=== PATIENT | male | born 1990 | race Caucasian/White ===

== ENCOUNTER 2018-12-07 17:13 | Inpatient (IN) ==
--- NOTE | 2018-12-07 18:14 | Emergency Department Note ---
Disposition Clinical Impression: Suicidal ideation, Depression Disposition: Still a Patient Condition: Fair Forms: ED Satisfaction Letter Time of Disposition: 20:17 General Adult HPI - General Chief complaint: ED Psychiatric Symptoms Stated complaint: SI Time Seen by Provider: 12/07/18 17:46 Source: patient, family Limitations: no limitations Nursing Notes Reviewed: Yes Vital Signs Reviewed: Yes - History of Present Illness HPI Narrative: Patient presents emergency Department with chief complaint of suicidal ideation and depression. The patient states that he is lonely, he states that he has multiple stressors and things that make him upset, he states that he still wets the bed and this makes him upset he states that he does not really have many friends. He states that he just feels always alone and tired. He has been cutting his arms, and repeatedly banging his head on the wall according to the family, and according to the patient. The patient denies fevers chills numbness weakness. He states he does feel hopeless he has a plan to try and kill himself sometimes. He states that he took a lenz and tried to hang himself once. He did not do this recently. He states the right this second he does not have suicidal ideation but he keeps coming and going. He states he does have a headache from banging his head on the wall. Patient reports that he has had no chest pain or shortness of breath no cough or sputum production no abdominal pain no nausea no vomiting or diarrhea. Patient denies focal numbness or weakness. Patient states that he does not take any medications. He states he does not like to take medications. Patient denies alcohol or street drugs he will occasionally smoke cigarettes. He states is not much that brings him abbey in life. Pain Scale: 8 - Related Data Home Medications Medication Instructions Recorded Confirmed No Known Home Drugs 10/04/18 10/04/18 Allergies Allergy/AdvReac Type Severity Reaction Status Date / Time No Known Allergies Allergy Verified 03/18/18 15:10 All systems ED: reviewed and negative except as stated. Review of Systems: As Per HPI Past Medical History - Past Medical History Medical history: Reports: renal disease Surgical history: Reports: no surgical history Psychiatric history: Reports: anxiety, bipolar, depression - Social History Smoking Status: Former smoker Smokeless Tobacco Status: No Alcohol use: Reports: none Drug use: Reports: marijuana Physical Exam - General Limitations: no limitations General appearance: alert, in no apparent distress - Head Head exam: atraumatic, normocephalic, normal inspection - Eye Eye exam: Present: normal appearance, PERRL, EOMI - Expanded Eye Exam Pupils: Left: reactive - ENT ENT exam: normal exam, normal oropharynx, mucous membranes moist - Expanded ENT Exam External ear exam: Present: normal external inspection Mouth exam: Present: normal external inspection Teeth exam: Present: normal inspection Throat exam: Present: normal inspection - Neck Neck exam: Present: normal inspection, full ROM, trachea midline - Chest Chest inspection: Present: normal inspection, symmetric chest wall rise - Respiratory Respiratory exam: Present: normal lung sounds bilaterally - Cardiovascular Cardiovascular exam: Present: regular rate, normal rhythm, normal heart sounds - Abdominal Exam Abdominal exam: Present: soft, Non-Tender. Absent: tenderness, distention, guarding, rebound, rigidity - Extremities Exam Extremities exam: Present: normal inspection, full ROM. Absent: tenderness, pe hill edema - Expanded Upper Extremity Exam Shoulder exam: Present: normal inspection, full ROM Arm exam: Present: normal inspection, full ROM Elbow exam: Present: normal inspection, full ROM Forearm/Wrist exam: Present: normal inspection, full ROM Hand exam: Present: normal inspection, full ROM Vascular exam: Normal: capillary refill, radial pulse - Expanded Lower Extremity Exam Hip/Pelvis exam: Present: normal inspection, full ROM Upper leg exam: Present: normal inspection, full ROM Knee exam: Present: normal inspection, full ROM Lower leg exam: Present: normal inspection, full ROM Ankle exam: Present: normal inspection, full ROM Foot/toe exam: Present: normal inspection, full ROM Neurovascular/Tendon exam: Absent: motor deficit, sensory deficit, tendon deficit - Back Exam Back exam: Present: normal inspection, full ROM. Absent: tenderness - Neurological Exam Neurological exam: Present: alert, oriented X3 - Expanded Neurological Exam Patient oriented to: Present: person, place, time Coma Scale Eye Opening: Spontaneous Coma Scale Motor Response: Obeys Commands Coma Scale Verbal Response: Oriented Coma Scale Total: 15 - Psychiatric Psychiatric exam: Present: depressed, flat affect, suicidal ideation (Intermittent). Absent: normal affect, normal mood - Skin Skin exam: Present: warm, dry, intact, normal color, other (superficial linear abrasions/cuts both arms) Course Vital Signs Temperature 98.0 F 12/07/18 17:35 Pulse Rate 55 12/07/18 17:35 Respiratory Rate 16 12/07/18 17:35 Blood Pressure 154/77 12/07/18 17:35 O2 Sat by Pulse Oximetry 99 12/07/18 17:35 Temperature 98.0 F 12/07/18 17:35 Pulse Rate 55 12/07/18 17:35 Respiratory Rate 16 12/07/18 17:35 Blood Pressure 154/77 12/07/18 17:35 O2 Sat by Pulse Oximetry 99 12/07/18 17:35 Oxygen Delivery Oxygen Delivery Room Air Medical Decision Making - MDM Narrative Medical decision making narrative: Medical screening labs were ordered, head CT was ordered secondary to repeated head banging Basic laboratory studies were all within acceptable limits urine drug screen was positive for marijuana salicylate Tylenol ethanol levels are all undetectable. Head CT is interpreted by radiology showed no acute intracranial pathology. Patient was cleared clinically for psychiatric admission. - Medical Records Medical records reviewed: Yes I reviewed the patient's medical records. - Lab Data Lab results reviewed: Yes I reviewed the patient's lab results. Result diagrams: 12/07/18 18:17 12/07/18 18:17 Lab Results 12/07/18 12/07/18 12/07/18 Range/Units 18:00 18:00 18:17 WBC 6.2 (4.3-11.1) K/mcL RBC 4.09 L (4.19-5.50) M/mcL Hgb 13.2 (12.9-16.9) g/dL Hct 38.6 (37.5-50.1) % MCV 94.4 (83.0-100.0) fL MCH 32.3 (28.0-33.3) pg MCHC 34.2 (31.6-35.5) g/dL RDW 12.6 (11.5-14.5) % Plt Count 181 (140-400) K/mcL MPV 9.9 (9.4-12.4) fL Immature Gran % 0.3 (0-4) % Seg Neutrophils % 62.8 % Lymphocytes % 27.9 % Monocytes % 7.1 % Eosinophils % 1.1 % Basophils % 0.8 % Neutrophils # 3.9 (1.6-8.9) K/mcL Lymphocytes # 1.7 (0.6-4.6) K/mcL Monocytes # 0.4 (0.0-1.3) K/mcL Eosinophils # 0.1 (0.0-0.6) K/mcL Basophils # 0.1 (0.0-0.2) K/mcL Sodium (136-145) mEq/L Potassium (3.5-5.1) mEq/L Chloride (98-107) mEq/L Carbon Dioxide (23-29) mEq/L BUN (6-20) mg/dL Creatinine (0.70-1.30) mg/dL Est GFR ( Amer) (> 60) Est GFR (Non-Af Amer) (> 60) BUN/Creatinine Ratio (6-26) Glucose (70-105) mg/dL Calculated Osmolality (280-300) Calcium (8.6-10.3) mg/dL Urine Color Yellow (Yellow) Urine Clarity Clear (Clear) Urine pH 8.0 (5.0-8.0) pH Units Ur Specific [place] 1.014 (1.010-1.025) Urine Protein Negative (Neg-Trace) mg/dL Urine Glucose (UA) Normal (Normal) mg/dL Urine Ketones Negative (Negative) mg/dL Urine Blood Negative (Negative) Urine Nitrite Negative (Negative) Urine Bilirubin Negative (Negative) Urine Urobilinogen Normal (Normal) mg/dL Ur Leukocyte Esterase Negative (Negative) Salicylates (15.0-30.0) mg/dL Urine Opiates Screen Negative (Purpdq=244) ng/mL Acetaminophen (10-20) mcg/mL Ur Barbiturates Screen Negative (Bsefsh=259) ng/mL Ur Phencyclidine Scrn Negative (Cutoff=25) ng/mL Ur Amphetamines Screen Negative (Pvmxys=7462) ng/mL U Benzodiazepines Scrn Negative (Zmqjwd=895) ng/mL Urine Cocaine Screen Negative (Cutoff= 300) ng/mL U Marijuana (THC) Screen Positive H (Cutoff = 50) ng/mL Ur Drug Screen Interp See Below Ethyl Alcohol (Less than 10) mg/dL 12/07/18 Range/Units 18:17 WBC (4.3-11.1) K/mcL RBC (4.19-5.50) M/mcL Hgb (12.9-16.9) g/dL Hct (37.5-50.1) % MCV (83.0-100.0) fL MCH (28.0-33.3) pg MCHC (31.6-35.5) g/dL RDW (11.5-14.5) % Plt Count (140-400) K/mcL MPV (9.4-12.4) fL Immature Gran % (0-4) % Seg Neutrophils % % Lymphocytes % % Monocytes % % Eosinophils % % Basophils % % Neutrophils # (1.6-8.9) K/mcL Lymphocytes # (0.6-4.6) K/mcL Monocytes # (0.0-1.3) K/mcL Eosinophils # (0.0-0.6) K/mcL Basophils # (0.0-0.2) K/mcL Sodium 137 (136-145) mEq/L Potassium 3.9 (3.5-5.1) mEq/L Chloride 104 (98-107) mEq/L Carbon Dioxide 29 (23-29) mEq/L BUN 11 (6-20) mg/dL Creatinine 0.64 L (0.70-1.30) mg/dL Est GFR ( Amer) > 60 (> 60) Est GFR (Non-Af Amer) > 60 (> 60) BUN/Creatinine Ratio 17 (6-26) Glucose 85 (70-105) mg/dL Calculated Osmolality 283 (280-300) Calcium 9.5 (8.6-10.3) mg/dL Urine Color (Yellow) Urine Clarity (Clear) Urine pH (5.0-8.0) pH Units Ur Specific [place] (1.010-1.025) Urine Protein (Neg-Trace) mg/dL Urine Glucose (UA) (Normal) mg/dL Urine Ketones (Negative) mg/dL Urine Blood (Negative) Urine Nitrite (Negative) Urine Bilirubin (Negative) Urine Urobilinogen (Normal) mg/dL Ur Leukocyte Esterase (Negative) Salicylates < 2.5 L (15.0-30.0) mg/dL Urine Opiates Screen (Nattpe=803) ng/mL Acetaminophen < 10 L (10-20) mcg/mL Ur Barbiturates Screen (Ufnlqp=348) ng/mL Ur Phencyclidine Scrn (Cutoff=25) ng/mL Ur Amphetamines Screen (Kkoouq=9828) ng/mL U Benzodiazepines Scrn (Oqutqv=398) ng/mL Urine Cocaine Screen (Cutoff= 300) ng/mL U Marijuana (THC) Screen (Cutoff = 50) ng/mL Ur Drug Screen Interp Ethyl Alcohol < 10 (Less than 10) mg/dL - Radiology Data Radiology results reviewed: Yes I reviewed the patient's radiology results.
[2018-12-07 18:25] LABS: Bilirubin,Urine Negative (Negative); Blood,Urine Negative (Negative); Clarity,Urine Clear (Clear); Color,Urine Yellow (Yellow); Glucose,Urine (UA) Normal (Normal); Ketones,Urine Negative (Negative); Leukocyte Esterase,Urine Negative (Negative); Nitrite,Urine Negative (Negative); Protein,Urine Negative (Neg-Trace); Specific Gravity,Urine 1.014 (1.010-1.025); Urobilinogen,Urine Normal (Normal)
[2018-12-07 18:36] LABS: Amphetamine Screen,Urine Negative ng/mL (Cutoff=1000); Barbiturate Screen,Urine Negative ng/mL (Cutoff=200); Benzodiazepines Screen,Urine Negative ng/mL (Cutoff=200); Cannabinoid Screen,Urine Positive ng/mL (Cutoff = 50); Cocaine Screen,Urine Negative ng/mL (Cutoff= 300); Opiate Screen,Urine Negative ng/mL (Cutoff=300); Phencyclidine Screen,Urine Negative ng/mL (Cutoff=25)
[2018-12-07 18:53] LABS: Basophils # 0.1 K/mcL (0.0-0.2); Basophils % 0.8 %; Eosinophils # 0.1 K/mcL (0.0-0.6); Eosinophils % 1.1 %; Hematocrit 38.6 % (37.5-50.1); Hemoglobin 13.2 g/dL (12.9-16.9); Immature Granulocytes % 0.3 % (0-4); Lymphocytes # 1.7 K/mcL (0.6-4.6); Lymphocytes % 27.9 %; Mean Corpuscular HGB Conc 34.2 g/dL (31.6-35.5); Mean Corpuscular Hemoglobin 32.3 pg (28.0-33.3); Mean Corpuscular Volume 94.4 fL (83.0-100.0); Mean Platelet Volume 9.9 fL (9.4-12.4); Monocytes # 0.4 K/mcL (0.0-1.3); Monocytes % 7.1 %; Neutrophils # 3.9 K/mcL (1.6-8.9); Platelet Count 181 K/mcL (140-400); Red Blood Count 4.09 M/mcL (4.19-5.50); Red Cell Distribution Width 12.6 % (11.5-14.5); Segmented Neutrophils % 62.8 %; White Blood Count 6.2 K/mcL (4.3-11.1)
[2018-12-07 19:07] LABS: Acetaminophen < 10 mcg/mL (10-20); BUN/Creatinine Ratio 17 (6-26); Blood Urea Nitrogen 11 mg/dL (6-20); Calcium 9.5 mg/dL (8.6-10.3); Carbon Dioxide 29 mEq/L (23-29); Chloride 104 mEq/L (98-107); Ethanol < 10 mg/dL (Less than 10); Glucose 85 mg/dL (70-105); Osmolality,Calculated 283 (280-300); Potassium 3.9 mEq/L (3.5-5.1); Salicylate < 2.5 mg/dL (15.0-30.0); Sodium 137 mEq/L (136-145); eGFR For African Americans > 60 (> 60); eGFR For Non-African Americans > 60 (> 60)
[2018-12-07] MEDS ORDERED: Haloperidol Lactate 5 MG/ML VIAL IM PRN (23:19)
[2018-12-07] MEDS ORDERED: Mag Hydrox/Al Hydrox/Simeth 30 ML UDC PO PRN (23:19)
[2018-12-07] MEDS ORDERED: MOM Conc 10 ML UD.LIQ PO PRN (23:19)
[2018-12-07] MEDS ORDERED: *HR* LORazepam 2 MG/ML VIAL IM PRN (23:19)
[2018-12-07] MEDS ORDERED: *HR* LORazepam 1 MG TABLET PO PRN (23:19)
[2018-12-08] MEDS: hydrOXYzine pamoate 25 MG CAPSULE PO PRN ×2 (00:37→21:16)
[2018-12-08] MEDS: Ibuprofen 400 MG TABLET PO PRN (00:37)
--- NOTE | 2018-12-08 13:51 | Psychiatry History & Physical ---
Date of Encounter: 12/08/18 Time of Encounter: 13:30 History of Present Illness Patient Stated Chief Complaint: "I'm fine" Medicare Admission Attestation: For traditional Medicare patients the provided hospital inpatient services are reasonable and necessary and in the case of services not specified as inpatient-only under 42 CFR 419.22 (n), that they are appropriately provided as inpatient services in accordance 42 CFR 412.3. For Critical Access Hospital the patient may reasonably be expected to be discharged or transferred to a hospital within 96 hours after admission to the Critical Access Hospital. Admitted From: Emergency Dept Plans for Post Hospital Care: Home History of Present Illness: Mr. Sanchez is a 28 year old male who was admitted to after evaluation emergency room and medical clearance. Patient has been cutting on himself and had passively threaten suicide to members of his family, but denied it in the emergency room. The family fears for his safety and he does acknowledge wanting to cut on himself more so lately than in the past. Patient's family notices he has become more depressed and distant and has anger outbursts at times. I went to talk to the patient today, but he would not get out of bed to come talk to me to do intake interview. He said he was fine and covered his head back up and would not talk further. I reviewed the notes from the emergency room assessment. Patient does appear to have depression or mood disorder, but it is questionable as to why. There is some documentation of the some drug use in the past and that things might have gotten worse with his cognition afterwards. He is low functioning and was in special classes in school. He lives independently on his own with a great deal of supervision from his grandmother. I will continue to try to get the patient to engage with me to get more information and I will contact family to discuss the case with them. Patient will be continued on his current medications he was taking outpatient until further evaluation is complete. Past Med Surg Social Fam HX - Past Medical History Medical history: renal disease - Past Psychiatric History Psychiatric history: Reports: depression (???) Past psychiatric history details: Patient takes an SSRI but not sure about compliance or who prescribes it. Family psychiatric history: Unknown Family History of Suicide: Unknown - Past Surgical History Surgical History: no surgical history - Social History Smoking Status: Former smoker Smokeless Tobacco Status: No Alcohol use: none Drug use: marijuana Occupational status: unemployed Current living situation: Home - Independent (, his grandmaother takes care of most of his maintenance.) Activity Level: Independent ambulation Recent Out of Country Travel Within the Last 8 Weeks: No Exposure or Possible Exposure to Illness During Travel: No Medications & Allergies Citalopram [CeleXA] 20 mg PO DAILY 12/08/18 [History] Oxybutynin Chloride [Ditropan Xl] 10 mg PO DAILY 12/08/18 [History] Allergy/AdvReac Type Severity Reaction Status Date / Time No Known Allergies Allergy Verified 12/08/18 09:22 Review of Systems Psychiatric: Reports: depression, anxiety, suicidal ideation (questionable/cutting on self) Exam - HEENT Head exam IM: Present: normocephalic Eye exam IM: Present: EOMI - Neurological Neurological exam: Present: CN II-XII intact (per ED clearance) - Constitutional Vitals: Temp Pulse Resp BP Pulse Ox 97.7 F 59 18 120/82 100 12/08/18 09:00 12/08/18 09:00 12/08/18 09:00 12/08/18 09:00 12/08/18 09:00 General appearance: unkempt (mildly, covered up with a blanket and does not want to get out of bed), thin - Psychiatric Behavior: uncooperative (He will not get out of bed to talk to me for intake and assessment) Eye Contact: Minimal Contact Affect description: constricted Speech Volume: Soft/Quiet Speech pattern: monotone Language & Vocabulary: limited Thought Content: Yes Suicidal ideation (reported ideation by family) Attention Span Ability: Unable to Focus, Unable to Sustain Attention Results - Drug Levels and Toxicology Drug Levels and Toxicology: Drug Levels and Toxicity 12/07/18 12/07/18 18:00 18:17 Urine Opiates Screen Negative Acetaminophen < 10 L Ur Barbiturates Screen Negative Ur Phencyclidine Scrn Negative Ur Amphetamines Screen Negative U Benzodiazepines Scrn Negative Urine Cocaine Screen Negative U Marijuana (THC) Screen Positive H Ethyl Alcohol < 10 - Labs Labs: Laboratory Last Values WBC 6.2 K/mcL (4.3-11.1) 12/07/18 18:17 RBC 4.09 M/mcL (4.19-5.50) L 12/07/18 18:17 Hgb 13.2 g/dL (12.9-16.9) 12/07/18 18:17 Hct 38.6 % (37.5-50.1) 12/07/18 18:17 MCV 94.4 fL (83.0-100.0) 12/07/18 18:17 MCH 32.3 pg (28.0-33.3) 12/07/18 18:17 MCHC 34.2 g/dL (31.6-35.5) 12/07/18 18:17 RDW 12.6 % (11.5-14.5) 12/07/18 18:17 Plt Count 181 K/mcL (140-400) 12/07/18 18:17 MPV 9.9 fL (9.4-12.4) 12/07/18 18:17 Immature Gran % 0.3 % (0-4) 12/07/18 18:17 Seg Neutrophils % 62.8 % 12/07/18 18:17 27.9 % 12/07/18 18:17 7.1 % 12/07/18 18:17 1.1 % 12/07/18 18:17 0.8 % 12/07/18 18:17 3.9 K/mcL (1.6-8.9) 12/07/18 18:17 1.7 K/mcL (0.6-4.6) 12/07/18 18:17 0.4 K/mcL (0.0-1.3) 12/07/18 18:17 0.1 K/mcL (0.0-0.6) 12/07/18 18:17 0.1 K/mcL (0.0-0.2) 12/07/18 18:17 Sodium 137 mEq/L (136-145) 12/07/18 18:17 Potassium 3.9 mEq/L (3.5-5.1) 12/07/18 18:17 Chloride 104 mEq/L (98-107) 12/07/18 18:17 Carbon Dioxide 29 mEq/L (23-29) 12/07/18 18:17 BUN 11 mg/dL (6-20) 12/07/18 18:17 0.64 mg/dL (0.70-1.30) L 12/07/18 18:17 Est GFR ( Amer) > 60 (> 60) 12/07/18 18:17 Est GFR (Non-Af Amer) > 60 (> 60) 12/07/18 18:17 17 (6-26) 12/07/18 18:17 Glucose 85 mg/dL (70-105) 12/07/18 18:17 283 (280-300) 12/07/18 18:17 Calcium 9.5 mg/dL (8.6-10.3) 12/07/18 18:17 Yellow (Yellow) 12/07/18 18:00 Clear (Clear) 12/07/18 18:00 8.0 pH Units (5.0-8.0) 12/07/18 18:00 Ur Specific [place] 1.014 (1.010-1.025) 12/07/18 18:00 Negative mg/dL (Neg-Trace) 12/07/18 18:00 Normal mg/dL (Normal) 12/07/18 18:00 Negative mg/dL (Negative) 12/07/18 18:00 Negative (Negative) 12/07/18 18:00 Negative (Negative) 12/07/18 18:00 Negative (Negative) 12/07/18 18:00 Normal mg/dL (Normal) 12/07/18 18:00 Ur Leukocyte Esterase Negative (Negative) 12/07/18 18:00 Salicylates < 2.5 mg/dL (15.0-30.0) L 12/07/18 18:17 Negative ng/mL (Ewsmts=259) 12/07/18 18:00 Acetaminophen < 10 mcg/mL (10-20) L 12/07/18 18:17 Ur Barbiturates Screen Negative ng/mL (Dlvwxm=230) 12/07/18 18:00 Ur Phencyclidine Scrn Negative ng/mL (Cutoff=25) 12/07/18 18:00 Ur Amphetamines Screen Negative ng/mL (Iwpwpi=7273) 12/07/18 18:00 U Benzodiazepines Scrn Negative ng/mL (Dvunck=443) 12/07/18 18:00 Negative ng/mL (Cutoff= 300) 12/07/18 18:00 U Marijuana (THC) Screen Positive ng/mL (Cutoff = 50) H 12/07/18 18:00 Ur Drug Screen Interp See Below 12/07/18 18:00 Ethyl Alcohol < 10 mg/dL (Less than 10) 12/07/18 18:17 - Impressions Impressions Head CT 12/07/18 18:08 IMPRESSION: No acute intracranial abnormality. D/ / Tj Hoang / Tj Hoang Interpreting Provider: Tj Hoang Assessment and Plan (1) Depression Current visit: Yes Status: Acute Plan: Admit inpatient for safety and stabilization, Close observation, Suicide Precautions per unit protocol, Encourage participation in unit milieu Risks, benefits, side effects, alternatives discussed w/pt: Yes (Continue his Celexa for now) Patient agreeable to treatment: No (he will not cooperate with intake interview) Plans for Post Hospital Care: Home Estimated Length of Stay (Days): 5
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
[2018-12-09] MEDS: hydrOXYzine pamoate 25 MG CAPSULE PO PRN (20:54)
--- NOTE | 2018-12-10 10:30 | Psychiatry Progress Note ---
Date of Encounter: 12/10/18 Time of Encounter: 10:10 Subjective Interval history: I spoke with the patient this morning about the anxiety/agitation he had last evening after a confrontation he had with his grandmother during visiting hours. She told him that he was not going to be able to live with her when he was discharged, but she would continue to help him out in his house. Patient was confused and thought that his discharge was dependent on him living with his grandmother; therefore that he was never going to be discharged. I explained that he could still be discharged and not live with her. That we just needed to make sure he was stable and get him back into counseling and therapy. He stated that he wanted somebody live with him because he was lonely. He states that his dad might come live with him again or his cousin Donnell. He denies any adverse side effects of increase in the Celexa. He states he had a little bit of trouble sleeping last night because he was angry and frustrated, but hoped that today would be a better day. He is hopeful that someone would come visit him today. He denied any suicidal thoughts or thoughts of cutting. He told me he felt much calmer this morning after getting a little bit of sleep last night. No A/V hallucinations Review of Systems Psychiatric: Reports: depression, anxiety, suicidal ideation (questionable/cutting on self) Results - Vital Signs Vital Signs: Temp Pulse Resp BP Pulse Ox 98.3 F 74 18 147/83 99 12/09/18 21:00 12/09/18 21:00 12/09/18 21:00 12/09/18 21:00 12/09/18 21:00 - Impressions ITS Impressions Head CT 12/07/18 18:08 IMPRESSION: No acute intracranial abnormality. 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 Althea Kaplan M.D. for medication management. Please contact the office at least 24 hours in advance if you are unable to keep your appointment(s). ) Chino José DO [Resident] - 01/08/19 2:30 pm (You have an appointment scheduled with your primary care provider Dr. Chino José D.O. on Tuesday, January 08, 2019 at 2:30 PM Please contact the office at the number above at least 24 hours in advance if you are unable to keep this appointment. ) Psychiatry Exam - Constitutional Vitals: Temp Pulse Resp BP Pulse Ox 98.3 F 74 18 147/83 99 12/09/18 21:00 12/09/18 21:00 12/09/18 21:00 12/09/18 21:00 12/09/18 21:00 General appearance: thin - Musculoskeletal Gait: normal Station: stooped Strength & Tone: normal for patient - Psychiatric Patient Orientation: Yes Person, Yes Time, Yes Place Level of alertness: Alert (appears tired) Behavior: anxious (mildy) Psychomotor activity: Slowed Eye Contact: Maintains Eye Contact Mood Description: Depressed Affect description: congruent with mood Speech Volume: Normal Speech pattern: normal rate, normal rhythm, normal tone, fluent Language & Vocabulary: limited Thought Process: Linear, Goal Oriented Thought Content: Yes Intact Attention Span Ability: Capable of Focused Attention Patient Reliability: Questionable Historian Fund of knowledge: Yes below average Intelligence Estimate: Below Average Judgment: Fair Insight: Partial
[2018-12-10] MEDS: hydrOXYzine pamoate 25 MG CAPSULE PO PRN ×2 (16:37→20:14)
[2018-12-10] MEDS: Ibuprofen 400 MG TABLET PO PRN (20:16)
[2018-12-11] MEDS: Ibuprofen 400 MG TABLET PO PRN (08:59)
--- NOTE | 2018-12-11 09:14 | Discharge Summary ---
Date of Encounter: 12/11/18 Time of Encounter: 08:25 Diagnosis - Discharge Diagnosis (1) Depression Status: Acute Qualifiers: Depression Type: major depressive disorder Major depression recurrence: r ecurrent Active/Remission status: currently active Major depression episode severity: severe Psychotic features: without psychotic features Qualified Code(s): F33.2 - Major depressive disorder, recurrent severe without psychotic features Medications - Discharge Medications Prescriptions: Citalopram [CeleXA] 30 mg PO DAILY #23 tablet Oxybutynin Chloride [Ditropan Xl] 10 mg PO DAILY #15 tab.er.24 hydrOXYzine pamoate [HydrOXYzine Pamoate] 25 mg PO TID PRN #30 capsule PRN Reason: Anxiety Quetiapine Fumarate [Seroquel] 50 mg PO HS PRN #15 tablet PRN Reason: Insomnia Citalopram [CeleXA] 30 mg PO DAILY #23 tablet 12/11/18 [Rx] Oxybutynin Chloride [Ditropan Xl] 10 mg PO DAILY #15 tab.er.24 12/11/18 [Rx] Quetiapine Fumarate [Seroquel] 50 mg PO HS PRN #15 tablet 12/11/18 [Rx] hydrOXYzine pamoate [HydrOXYzine Pamoate] 25 mg PO TID PRN #30 capsule 12/11/18 [Rx] Allergy/AdvReac Type Severity Reaction Status Date / Time No Known Allergies Allergy Verified 12/08/18 09:22 Results Procedures and tests throughout hospitalization: Completed Lab Orders Category Date Time Status Acetaminophen Stat Lab 12/07/18 18:17 Completed Basic Metabolic Panel Stat Lab 12/07/18 18:17 Completed Complete Blood Count [HEME] Stat Lab 12/07/18 18:17 Completed Drug Screen, Urine [UCHEM] Stat Lab 12/07/18 18:00 Completed Ethanol Stat Lab 12/07/18 18:17 Completed Salicylate Stat Lab 12/07/18 18:17 Completed Urinalysis reflex Microscopic [URIN] Stat Lab 12/07/18 18:00 Completed Completed Imaging Orders Category Date Time Status CT head/brain wo con [CT] Stat Cat Scan 12/07/18 18:08 Completed Lab Results 12/07/18 12/07/18 12/07/18 Range/Units 18:00 18:00 18:17 WBC 6.2 (4.3-11.1) K/mcL RBC 4.09 L (4.19-5.50) M/mcL Hgb 13.2 (12.9-16.9) g/dL Hct 38.6 (37.5-50.1) % MCV 94.4 (83.0-100.0) fL MCH 32.3 (28.0-33.3) pg MCHC 34.2 (31.6-35.5) g/dL RDW 12.6 (11.5-14.5) % Plt Count 181 (140-400) K/mcL MPV 9.9 (9.4-12.4) fL Immature Gran % 0.3 (0-4) % Seg Neutrophils % 62.8 % Lymphocytes % 27.9 % Monocytes % 7.1 % Eosinophils % 1.1 % Basophils % 0.8 % Neutrophils # 3.9 (1.6-8.9) K/mcL Lymphocytes # 1.7 (0.6-4.6) K/mcL Monocytes # 0.4 (0.0-1.3) K/mcL Eosinophils # 0.1 (0.0-0.6) K/mcL Basophils # 0.1 (0.0-0.2) K/mcL Sodium (136-145) mEq/L Potassium (3.5-5.1) mEq/L Chloride (98-107) mEq/L Carbon Dioxide (23-29) mEq/L BUN (6-20) mg/dL Creatinine (0.70-1.30) mg/dL Est GFR ( Amer) (> 60) Est GFR (Non-Af Amer) (> 60) BUN/Creatinine Ratio (6-26) Glucose (70-105) mg/dL Calculated Osmolality (280-300) Calcium (8.6-10.3) mg/dL Urine Color Yellow (Yellow) Urine Clarity Clear (Clear) Urine pH 8.0 (5.0-8.0) pH Units Ur Specific [place] 1.014 (1.010-1.025) Urine Protein Negative (Neg-Trace) mg/dL Urine Glucose (UA) Normal (Normal) mg/dL Urine Ketones Negative (Negative) mg/dL Urine Blood Negative (Negative) Urine Nitrite Negative (Negative) Urine Bilirubin Negative (Negative) Urine Urobilinogen Normal (Normal) mg/dL Ur Leukocyte Esterase Negative (Negative) Salicylates (15.0-30.0) mg/dL Urine Opiates Screen Negative (Hwrntj=348) ng/mL Acetaminophen (10-20) mcg/mL Ur Barbiturates Screen Negative (Gvjtcd=899) ng/mL Ur Phencyclidine Scrn Negative (Cutoff=25) ng/mL Ur Amphetamines Screen Negative (Shfrfb=1640) ng/mL U Benzodiazepines Scrn Negative (Gdiqiz=697) ng/mL Urine Cocaine Screen Negative (Cutoff= 300) ng/mL U Marijuana (THC) Screen Positive H (Cutoff = 50) ng/mL Ur Drug Screen Interp See Below Ethyl Alcohol (Less than 10) mg/dL 12/07/18 Range/Units 18:17 WBC (4.3-11.1) K/mcL RBC (4.19-5.50) M/mcL Hgb (12.9-16.9) g/dL Hct (37.5-50.1) % MCV (83.0-100.0) fL MCH (28.0-33.3) pg MCHC (31.6-35.5) g/dL RDW (11.5-14.5) % Plt Count (140-400) K/mcL MPV (9.4-12.4) fL Immature Gran % (0-4) % Seg Neutrophils % % Lymphocytes % % Monocytes % % Eosinophils % % Basophils % % Neutrophils # (1.6-8.9) K/mcL Lymphocytes # (0.6-4.6) K/mcL Monocytes # (0.0-1.3) K/mcL Eosinophils # (0.0-0.6) K/mcL Basophils # (0.0-0.2) K/mcL Sodium 137 (136-145) mEq/L Potassium 3.9 (3.5-5.1) mEq/L Chloride 104 (98-107) mEq/L Carbon Dioxide 29 (23-29) mEq/L BUN 11 (6-20) mg/dL Creatinine 0.64 L (0.70-1.30) mg/dL Est GFR ( Amer) > 60 (> 60) Est GFR (Non-Af Amer) > 60 (> 60) BUN/Creatinine Ratio 17 (6-26) Glucose 85 (70-105) mg/dL Calculated Osmolality 283 (280-300) Calcium 9.5 (8.6-10.3) mg/dL Urine Color (Yellow) Urine Clarity (Clear) Urine pH (5.0-8.0) pH Units Ur Specific [place] (1.010-1.025) Urine Protein (Neg-Trace) mg/dL Urine Glucose (UA) (Normal) mg/dL Urine Ketones (Negative) mg/dL Urine Blood (Negative) Urine Nitrite (Negative) Urine Bilirubin (Negative) Urine Urobilinogen (Normal) mg/dL Ur Leukocyte Esterase (Negative) Salicylates < 2.5 L (15.0-30.0) mg/dL Urine Opiates Screen (Enalad=884) ng/mL Acetaminophen < 10 L (10-20) mcg/mL Ur Barbiturates Screen (Ulandt=775) ng/mL Ur Phencyclidine Scrn (Cutoff=25) ng/mL Ur Amphetamines Screen (Fjgcld=7019) ng/mL U Benzodiazepines Scrn (Ftkkda=817) ng/mL Urine Cocaine Screen (Cutoff= 300) ng/mL U Marijuana (THC) Screen (Cutoff = 50) ng/mL Ur Drug Screen Interp Ethyl Alcohol < 10 (Less than 10) mg/dL Provider Date of admission: 12/07/18 23:20 Primary care physician: PCP NONE Discharging clinician: Day [facility]ens Psychiatry Exam - Constitutional Vitals: Temp Pulse Resp BP Pulse Ox 97.9 F 75 18 145/89 100 12/10/18 19:49 12/10/18 19:49 12/10/18 19:49 12/10/18 19:49 12/10/18 19:49 General appearance: age & developmentally appropriate, malnourished (Smells of urine of urine) - Musculoskeletal Gait: normal Station: relaxed Strength & Tone: normal for patient - Psychiatric Patient Orientation: Yes Person, Yes Time, Yes Place, Yes Circumstance Level of alertness: Alert Behavior: calm, cooperative Psychomotor activity: Normal Eye Contact: Maintains Eye Contact Mood Description: Euthymic/stable Patient description of mood: Okay Affect description: congruent with mood, full range Speech Volume: Normal Speech pattern: normal rate, normal rhythm, normal tone, fluent, spontaneous Language & Vocabulary: limited Thought Process: Linear, Goal Oriented Thought Content: No Suicidal ideation, No Homicidal ideation, No Overt delusions Perceptual Disturbances: No Auditory hallucinations, No Visual hallucinations Attention Span Ability: Capable of Focused Attention Memory Description: Grossly Intact Patient Reliability: Reliable Historian Fund of knowledge: Yes below average Intelligence Estimate: Below Average Judgment: Good Insight: Full Hospital Course Hospital course: Mr. Sanchez is a 28 year old male who was admitted to after evaluation emergency room and medical clearance. Patient has been cutting on himself and had passively threaten suicide to members of his family, but denied it in the emergency room. He had his Celexa increased to 30 mg a day which she tolerated well. He liked being in the hospital and having people take care of him.Patient was educated of diagnosis and the risk-benefit side effects of this alternative treatment options and was monitored for responsiveness and side effects. Mood anxiety sleep and appetite interest improved as did future orientation. Self- harm thoughts subsided and mood stabilized. Patient was able to attend both individual and group therapy sessions as well as meet with the psychiatrist daily and urged to discuss any medication or treatment issues or other concerns. The patient was educated primarily by verbal means about their diagnosis and manifestations in their life. The option for treatment including group and individual therapy programming was offered to the patient in addition to the use of medications with all their potential risks, benefits, and side effects as well as the risks of not taking medication and non-adhereance were discussed with the patient at length. The patient was given the opportunity to ask questions and was noted to participate in the treatment in the planning process. The patient felt ready and eager to be discharged from the inpatient psychiatric unit to continue on with treatment as an outpatient. The patient agreed that is they were safe for this disposition. The patient was considered to be able to participate in informed consent and decision making with respect to medical, legal, and financial issues of the time of discharge. At the time of discharge the patient adamantly denied any concerns for lethality including suicidal or homicidal thoughts ideations or plans and was future oriented toward ongoing mental health care, medical follow-up and sobriety. Time spent discussing smoking cessation with patient: 3 to 10 minutes Does patient wish to continue nicotine replacement upon disc: No - Time Spent with Patient Total time spent providing and/or coordinating discharge services: 25 Less than 30 minutes Specific discharge activities: Interval history reviewed. Available labs reviewed . Psychotherapy provided. Patient had an opportunity to ask questions and address concerns. Patient was in agreement with the treatment plan. The risks benefits and side effects of medications were discussed with the patient, including alternatives and treatment. The patient was educated on the abstaining from any alcohol or illicit substances, following up with all scheduled appointments, and taking all medications as prescribed. Assessment and Plan - Patient/Caregiver Discharge Instructions Activity: resume usual activities as tolerated Diet: regular diet Additional Instructions: Continue current medications. Follow up with outpatient mental health. Encourage continued therapy in a group or individual setting. The patient was discharged to home. - Follow up Plan Follow up with: [facility] [Outside] - 12/19/18 1:40 pm (You have an appointment scheduled for Wednesday, December 19, 2018 at 1:[address] Althea Kaplan M.D. for medication management. Please contact the office at least 24 hours in advance if you are unable to keep your appointment(s). ) Chino José DO [Resident] - 01/08/19 2:30 pm (You have an appointment scheduled with your primary care provider Dr. Chino José, D.O. on Tuesday, January 08, 2019 at 2:30 PM Please contact the office at the number above at least 24 hours in advance if you are unable to keep this appointment. ) Functional capacity at discharge: independent ambulation Overall status at discharge: Stable Disposition: Home, Self-Care Quality - Multiple Antipsychotics Patient discharged on 2 or more antipsychotic medications: No Procedures - Procedures Procedures: Medication Management, Crisis Stabilization, Supportive Therapy, Group Therapy, Psychoeducational Therapy
[2018-12-11 09:59] VITALS: BP 138/95
== END 2018-12-11 17:40 | disposition home or self-care (01) | DRG 751 ==
LOC: 1ANU 17:13 → EMEROOARM 17:13 → 1ANU 23:08 → SUATTDRO 23:20
PROVIDERS: ADMIT Psychiatry & Neurology Psychiatry; ATTEND Psychiatry & Neurology Psychiatry

== ENCOUNTER 2019-03-25 14:49 | Inpatient (IN) ==
--- NOTE | 2019-03-25 15:23 | Emergency Department Note ---
Disposition Clinical Impression: Suicidal ideation Disposition: Still a Patient Condition: Good Referrals: NONE,PCP [Primary Care Provider] - Forms: ED Satisfaction Letter Time of Disposition: 18:52 General Adult HPI - General Chief complaint: ED Psychiatric Symptoms Stated complaint: si Time Seen by Provider: 03/25/19 14:51 Source: patient, EMS Limitations: no limitations Nursing Notes Reviewed: Yes Vital Signs Reviewed: Yes - History of Present Illness HPI Narrative: Presents with suicidal ideation and planned to get a piece of glass in the cut himself all over and he also has homicidal ideation to harm his neighbors and he told them this several days ago. The patient has tried end his life in the past. He does live alone. He does not have visual or auditory hallucinations. He was transported here by EMS. Stated before and he was running around with a screwdriver yelling and screaming. He denies any runny nose, cough, sneezing, fevers, blurred vision or any other specific complaints. Social history: No smoking, alcohol, uses marijuana sometimes Pain Scale: 0 - Related Data Home Medications Medication Instructions Recorded Confirmed Docusate [Colace] 100 mg PO BID PRN 03/25/19 03/25/19 Naproxen 500 mg PO BID 03/25/19 03/25/19 Quetiapine Fumarate [Seroquel] 50 mg PO BID 03/25/19 03/25/19 Previous Rx's Medication Instructions Recorded Oxybutynin Chloride [Ditropan XL] 10 mg PO DAILY #15 tab.er.24 12/11/18 hydrOXYzine pamoate [Vistaril] 25 mg PO TID PRN #30 capsule 12/11/18 Lactose-Reduced Food [Ensure 1 bottle PO DAILY #10 can 12/24/18 Liquid] Allergies Allergy/AdvReac Type Severity Reaction Status Date / Time No Known Allergies Allergy Verified 12/24/18 14:43 All systems ED: reviewed and negative except as stated. Past Medical History - Past Medical History Medical history: Reports: renal disease Surgical history: Reports: no surgical history Psychiatric history: Reports: depression, previous psychiatric hospitalization, other - Social History Smoking Status: Former smoker Smokeless Tobacco Status: No Alcohol use: Reports: none Drug use: Reports: marijuana Physical Exam CONSTITUTIONAL: Alert and oriented X3, well-nourished, sad appearing, in no apparent distress HEAD: Normocephalic; atraumatic. EYES: PERRL, no scleral icterus. NOSE: The nose is normal in appearance without rhinorrhea RESP: Normal chest excursion with respiration; breath sounds clear and equal bilaterally; no wheezes, rhonchi, or rales CARD: Regular rhythm, without murmurs, rub or gallop ABD: Non-distended; non-tender, soft,without rigidity, rebound or guarding SKIN: Normal for age and race; warm and dry; no apparent lesions - General Limitations: no limitations General appearance: alert, anxious, in distress Course Vital Signs Temperature 97.4 F L 03/25/19 14:57 Pulse Rate 58 03/25/19 14:57 Respiratory Rate 14 03/25/19 14:57 Blood Pressure 150/78 03/25/19 14:57 O2 Sat by Pulse Oximetry 100 03/25/19 14:57 Temperature 97.4 F L 03/25/19 14:57 Pulse Rate 58 03/25/19 14:57 Respiratory Rate 14 03/25/19 14:57 Blood Pressure 150/78 03/25/19 14:57 O2 Sat by Pulse Oximetry 100 03/25/19 14:57 Oxygen Delivery Oxygen Delivery Room Air Medical Decision Making - MDM Narrative Medical decision making narrative: I did write for the psychiatric mental health labs and these results are pending and then one a will be consulted 1522 Care will be transitioned to Dr. Javed at change of shift 1852 - Lab Data Result diagrams: 03/25/19 15:04 03/25/19 15:04 Lab Results 03/25/19 03/25/19 03/25/19 Range/Units 15:04 15:04 17:22 WBC 6.1 (4.3-11.1) K/mcL RBC 4.40 (4.19-5.50) M/mcL Hgb 13.7 (12.9-16.9) g/dL Hct 40.2 (37.5-50.1) % MCV 91.4 (83.0-100.0) fL MCH 31.1 (28.0-33.3) pg MCHC 34.1 (31.6-35.5) g/dL RDW 12.9 (11.5-14.5) % Plt Count 229 (140-400) K/mcL MPV 10.0 (9.4-12.4) fL Immature Gran % 0.2 (0-4) % Seg Neutrophils % 57.3 % Lymphocytes % 34.2 % Monocytes % 6.9 % Eosinophils % 0.7 % Basophils % 0.7 % Neutrophils # 3.5 (1.6-8.9) K/mcL Lymphocytes # 2.1 (0.6-4.6) K/mcL Monocytes # 0.4 (0.0-1.3) K/mcL Eosinophils # 0.0 (0.0-0.6) K/mcL Basophils # 0.0 (0.0-0.2) K/mcL Sodium 139 (136-145) mEq/L Potassium 3.7 (3.5-5.1) mEq/L Chloride 104 (98-107) mEq/L Carbon Dioxide 24 (23-29) mEq/L BUN 11 (6-20) mg/dL Creatinine 0.84 (0.70-1.30) mg/dL Est GFR ( Amer) > 60 (> 60) Est GFR (Non-Af Amer) > 60 (> 60) BUN/Creatinine Ratio 13 (6-26) Glucose 85 (70-105) mg/dL Calculated Osmolality 287 (280-300) Calcium 9.8 (8.6-10.3) mg/dL Urine Color Yellow (Yellow) Urine Clarity Clear (Clear) Urine pH 8.5 H (5.0-8.0) pH Units Ur Specific [place] 1.020 (1.010-1.025) Urine Protein Negative (Neg-Trace) mg/dL Urine Glucose (UA) Normal (Normal) mg/dL Urine Ketones Negative (Negative) mg/dL Urine Blood Negative (Negative) Urine Nitrite Negative (Negative) Urine Bilirubin Negative (Negative) Urine Urobilinogen Normal (Normal) mg/dL Ur Leukocyte Esterase Small H (Negative) Urine Microscopic RBC 0-3 (0-3) per hpf Urine Microscopic WBC 5-15 H (0-3) per hpf Ur Squamous Epith Cells Many H (None-Few) per lpf Urine Bacteria None Seen (None-Few) per hpf Hyaline Casts Moderate H (None-Few) per lpf Salicylates < 2.5 L (15.0-30.0) mg/dL Urine Opiates Screen (Zrvyot=889) ng/mL Ur Buprenorphine Scrn (Cutoff=5) ng/mL Acetaminophen < 10 L (10-20) mcg/mL Ur Barbiturates Screen (Zfdjoi=015) ng/mL Ur Phencyclidine Scrn (Cutoff=25) ng/mL Ur Amphetamines Screen (Ypjilm=2104) ng/mL U Benzodiazepines Scrn (Qilvhh=286) ng/mL Urine Cocaine Screen (Cutoff= 300) ng/mL U Marijuana (THC) Screen (Cutoff = 50) ng/mL Ur Drug Screen Interp Ethyl Alcohol < 10 (Less than 10) mg/dL 03/25/19 Range/Units 17:22 WBC (4.3-11.1) K/mcL RBC (4.19-5.50) M/mcL Hgb (12.9-16.9) g/dL Hct (37.5-50.1) % MCV (83.0-100.0) fL MCH (28.0-33.3) pg MCHC (31.6-35.5) g/dL RDW (11.5-14.5) % Plt Count (140-400) K/mcL MPV (9.4-12.4) fL Immature Gran % (0-4) % Seg Neutrophils % % Lymphocytes % % Monocytes % % Eosinophils % % Basophils % % Neutrophils # (1.6-8.9) K/mcL Lymphocytes # (0.6-4.6) K/mcL Monocytes # (0.0-1.3) K/mcL Eosinophils # (0.0-0.6) K/mcL Basophils # (0.0-0.2) K/mcL Sodium (136-145) mEq/L Potassium (3.5-5.1) mEq/L Chloride (98-107) mEq/L Carbon Dioxide (23-29) mEq/L BUN (6-20) mg/dL Creatinine (0.70-1.30) mg/dL Est GFR ( Amer) (> 60) Est GFR (Non-Af Amer) (> 60) BUN/Creatinine Ratio (6-26) Glucose (70-105) mg/dL Calculated Osmolality (280-300) Calcium (8.6-10.3) mg/dL Urine Color (Yellow) Urine Clarity (Clear) Urine pH (5.0-8.0) pH Units Ur Specific [place] (1.010-1.025) Urine Protein (Neg-Trace) mg/dL Urine Glucose (UA) (Normal) mg/dL Urine Ketones (Negative) mg/dL Urine Blood (Negative) Urine Nitrite (Negative) Urine Bilirubin (Negative) Urine Urobilinogen (Normal) mg/dL Ur Leukocyte Esterase (Negative) Urine Microscopic RBC (0-3) per hpf Urine Microscopic WBC (0-3) per hpf Ur Squamous Epith Cells (None-Few) per lpf Urine Bacteria (None-Few) per hpf Hyaline Casts (None-Few) per lpf Salicylates (15.0-30.0) mg/dL Urine Opiates Screen Negative (Rphout=134) ng/mL Ur Buprenorphine Scrn Negative (Cutoff=5) ng/mL Acetaminophen (10-20) mcg/mL Ur Barbiturates Screen Negative (Cjxagv=857) ng/mL Ur Phencyclidine Scrn Negative (Cutoff=25) ng/mL Ur Amphetamines Screen Negative (Fgfjtp=7892) ng/mL U Benzodiazepines Scrn Negative (Inbves=353) ng/mL Urine Cocaine Screen Negative (Cutoff= 300) ng/mL U Marijuana (THC) Screen Negative (Cutoff = 50) ng/mL Ur Drug Screen Interp See Below Ethyl Alcohol (Less than 10) mg/dL
[2019-03-25 15:44] LABS: Basophils % 0.7 %; Eosinophils % 0.7 %; Hematocrit 40.2 % (37.5-50.1); Hemoglobin 13.7 g/dL (12.9-16.9); Immature Granulocytes % 0.2 % (0-4); Lymphocytes # 2.1 K/mcL (0.6-4.6); Lymphocytes % 34.2 %; Mean Corpuscular HGB Conc 34.1 g/dL (31.6-35.5); Mean Corpuscular Hemoglobin 31.1 pg (28.0-33.3); Mean Corpuscular Volume 91.4 fL (83.0-100.0); Monocytes # 0.4 K/mcL (0.0-1.3); Monocytes % 6.9 %; Neutrophils # 3.5 K/mcL (1.6-8.9); Platelet Count 229 K/mcL (140-400); Red Cell Distribution Width 12.9 % (11.5-14.5); Segmented Neutrophils % 57.3 %; White Blood Count 6.1 K/mcL (4.3-11.1)
[2019-03-25 16:02] LABS: Acetaminophen < 10 mcg/mL (10-20); BUN/Creatinine Ratio 13 (6-26); Blood Urea Nitrogen 11 mg/dL (6-20); Calcium 9.8 mg/dL (8.6-10.3); Carbon Dioxide 24 mEq/L (23-29); Chloride 104 mEq/L (98-107); Ethanol < 10 mg/dL (Less than 10); Glucose 85 mg/dL (70-105); Osmolality,Calculated 287 (280-300); Potassium 3.7 mEq/L (3.5-5.1); Salicylate < 2.5 mg/dL (15.0-30.0); Sodium 139 mEq/L (136-145); eGFR For African Americans > 60 (> 60); eGFR For Non-African Americans > 60 (> 60)
[2019-03-25 17:32] LABS: Bilirubin,Urine Negative (Negative); Blood,Urine Negative (Negative); Clarity,Urine Clear (Clear); Color,Urine Yellow (Yellow); Glucose,Urine (UA) Normal (Normal); Ketones,Urine Negative (Negative); Leukocyte Esterase,Urine Small (Negative); Nitrite,Urine Negative (Negative); PH,Urine 8.5 pH Units (5.0-8.0); Protein,Urine Negative (Neg-Trace); Urobilinogen,Urine Normal (Normal)
[2019-03-25 17:35] LABS: Bacteria,Urine None Seen per hpf (None-Few); Hyaline Casts,Urine Moderate per lpf (None-Few); RBC,Urine 0-3 per hpf (0-3); Squamous Epithelial Cell,Urine Many per lpf (None-Few)
[2019-03-25 17:39] LABS: Amphetamine Screen,Urine Negative ng/mL (Cutoff=1000); Barbiturate Screen,Urine Negative ng/mL (Cutoff=200); Benzodiazepines Screen,Urine Negative ng/mL (Cutoff=200); Cannabinoid Screen,Urine Negative ng/mL (Cutoff = 50); Cocaine Screen,Urine Negative ng/mL (Cutoff= 300); Opiate Screen,Urine Negative ng/mL (Cutoff=300); Phencyclidine Screen,Urine Negative ng/mL (Cutoff=25)
--- NOTE | 2019-03-25 19:16 | Emergency Department Note ---
Disposition Clinical Impression: Suicidal ideation Disposition: Admitted As Inpatient Condition: Good Referrals: NONE,PCP [Primary Care Provider] - Forms: ED Satisfaction Letter Time of Disposition: 22:47 General Adult HPI - General Chief complaint: ED Psychiatric Symptoms Stated complaint: si Time Seen by Provider: 03/25/19 14:51 Source: patient, EMS Limitations: no limitations - History of Present Illness Pain Scale: 0 - Related Data Home Medications Medication Instructions Recorded Confirmed Docusate [Colace] 100 mg PO BID PRN 03/25/19 03/25/19 Naproxen 500 mg PO BID 03/25/19 03/25/19 Quetiapine Fumarate [Seroquel] 50 mg PO BID 03/25/19 03/25/19 Previous Rx's Medication Instructions Recorded Oxybutynin Chloride [Ditropan XL] 10 mg PO DAILY #15 tab.er.24 12/11/18 hydrOXYzine pamoate [Vistaril] 25 mg PO TID PRN #30 capsule 12/11/18 Lactose-Reduced Food [Ensure 1 bottle PO DAILY #10 can 12/24/18 Liquid] Allergies Allergy/AdvReac Type Severity Reaction Status Date / Time No Known Allergies Allergy Verified 12/24/18 14:43 Past Medical History - Past Medical History Medical history: Reports: renal disease Surgical history: Reports: no surgical history Psychiatric history: Reports: depression, previous psychiatric hospitalization, other - Social History Smoking Status: Former smoker Smokeless Tobacco Status: No Alcohol use: Reports: none Drug use: Reports: marijuana Physical Exam - General Limitations: no limitations General appearance: alert, anxious, in distress Course - Reevaluation(s) Reevaluation #1: accepted sign out from Dr. Reyes. Jamil is otherwise medically cleared and waiting for [facility] reccs. Resting comfortably at bedside and in no acute distress Time: 19:16 - Consultations Consultation #1: [facility] has decided to admit patient to their service. pink slip done by previous doctor. Time: 22:47 Vital Signs Temperature 97.4 F L 03/25/19 14:57 Pulse Rate 58 03/25/19 14:57 Respiratory Rate 14 03/25/19 14:57 Blood Pressure 150/78 03/25/19 14:57 O2 Sat by Pulse Oximetry 100 03/25/19 14:57 Temperature 97.4 F L 03/25/19 14:57 Pulse Rate 56 03/25/19 19:54 Respiratory Rate 16 03/25/19 19:54 Blood Pressure 118/68 03/25/19 19:54 O2 Sat by Pulse Oximetry 99 03/25/19 19:54 Oxygen Delivery Oxygen Delivery Room Air Medical Decision Making - Lab Data Result diagrams: 03/25/19 15:04 03/25/19 15:04 Lab Results 03/25/19 03/25/19 03/25/19 Range/Units 15:04 15:04 17:22 WBC 6.1 (4.3-11.1) K/mcL RBC 4.40 (4.19-5.50) M/mcL Hgb 13.7 (12.9-16.9) g/dL Hct 40.2 (37.5-50.1) % MCV 91.4 (83.0-100.0) fL MCH 31.1 (28.0-33.3) pg MCHC 34.1 (31.6-35.5) g/dL RDW 12.9 (11.5-14.5) % Plt Count 229 (140-400) K/mcL MPV 10.0 (9.4-12.4) fL Immature Gran % 0.2 (0-4) % Seg Neutrophils % 57.3 % Lymphocytes % 34.2 % Monocytes % 6.9 % Eosinophils % 0.7 % Basophils % 0.7 % Neutrophils # 3.5 (1.6-8.9) K/mcL Lymphocytes # 2.1 (0.6-4.6) K/mcL Monocytes # 0.4 (0.0-1.3) K/mcL Eosinophils # 0.0 (0.0-0.6) K/mcL Basophils # 0.0 (0.0-0.2) K/mcL Sodium 139 (136-145) mEq/L Potassium 3.7 (3.5-5.1) mEq/L Chloride 104 (98-107) mEq/L Carbon Dioxide 24 (23-29) mEq/L BUN 11 (6-20) mg/dL Creatinine 0.84 (0.70-1.30) mg/dL Est GFR ( Amer) > 60 (> 60) Est GFR (Non-Af Amer) > 60 (> 60) BUN/Creatinine Ratio 13 (6-26) Glucose 85 (70-105) mg/dL Calculated Osmolality 287 (280-300) Calcium 9.8 (8.6-10.3) mg/dL Urine Color Yellow (Yellow) Urine Clarity Clear (Clear) Urine pH 8.5 H (5.0-8.0) pH Units Ur Specific [place] 1.020 (1.010-1.025) Urine Protein Negative (Neg-Trace) mg/dL Urine Glucose (UA) Normal (Normal) mg/dL Urine Ketones Negative (Negative) mg/dL Urine Blood Negative (Negative) Urine Nitrite Negative (Negative) Urine Bilirubin Negative (Negative) Urine Urobilinogen Normal (Normal) mg/dL Ur Leukocyte Esterase Small H (Negative) Urine Microscopic RBC 0-3 (0-3) per hpf Urine Microscopic WBC 5-15 H (0-3) per hpf Ur Squamous Epith Cells Many H (None-Few) per lpf Urine Bacteria None Seen (None-Few) per hpf Hyaline Casts Moderate H (None-Few) per lpf Salicylates < 2.5 L (15.0-30.0) mg/dL Urine Opiates Screen (Rgswlp=956) ng/mL Ur Buprenorphine Scrn (Cutoff=5) ng/mL Acetaminophen < 10 L (10-20) mcg/mL Ur Barbiturates Screen (Lljode=356) ng/mL Ur Phencyclidine Scrn (Cutoff=25) ng/mL Ur Amphetamines Screen (Pcpzig=8037) ng/mL U Benzodiazepines Scrn (Rueqhv=329) ng/mL Urine Cocaine Screen (Cutoff= 300) ng/mL U Marijuana (THC) Screen (Cutoff = 50) ng/mL Ur Drug Screen Interp Ethyl Alcohol < 10 (Less than 10) mg/dL 03/25/19 Range/Units 17:22 WBC (4.3-11.1) K/mcL RBC (4.19-5.50) M/mcL Hgb (12.9-16.9) g/dL Hct (37.5-50.1) % MCV (83.0-100.0) fL MCH (28.0-33.3) pg MCHC (31.6-35.5) g/dL RDW (11.5-14.5) % Plt Count (140-400) K/mcL MPV (9.4-12.4) fL Immature Gran % (0-4) % Seg Neutrophils % % Lymphocytes % % Monocytes % % Eosinophils % % Basophils % % Neutrophils # (1.6-8.9) K/mcL Lymphocytes # (0.6-4.6) K/mcL Monocytes # (0.0-1.3) K/mcL Eosinophils # (0.0-0.6) K/mcL Basophils # (0.0-0.2) K/mcL Sodium (136-145) mEq/L Potassium (3.5-5.1) mEq/L Chloride (98-107) mEq/L Carbon Dioxide (23-29) mEq/L BUN (6-20) mg/dL Creatinine (0.70-1.30) mg/dL Est GFR ( Amer) (> 60) Est GFR (Non-Af Amer) (> 60) BUN/Creatinine Ratio (6-26) Glucose (70-105) mg/dL Calculated Osmolality (280-300) Calcium (8.6-10.3) mg/dL Urine Color (Yellow) Urine Clarity (Clear) Urine pH (5.0-8.0) pH Units Ur Specific [place] (1.010-1.025) Urine Protein (Neg-Trace) mg/dL Urine Glucose (UA) (Normal) mg/dL Urine Ketones (Negative) mg/dL Urine Blood (Negative) Urine Nitrite (Negative) Urine Bilirubin (Negative) Urine Urobilinogen (Normal) mg/dL Ur Leukocyte Esterase (Negative) Urine Microscopic RBC (0-3) per hpf Urine Microscopic WBC (0-3) per hpf Ur Squamous Epith Cells (None-Few) per lpf Urine Bacteria (None-Few) per hpf Hyaline Casts (None-Few) per lpf Salicylates (15.0-30.0) mg/dL Urine Opiates Screen Negative (Bmvvjp=718) ng/mL Ur Buprenorphine Scrn Negative (Cutoff=5) ng/mL Acetaminophen (10-20) mcg/mL Ur Barbiturates Screen Negative (Zcwevy=023) ng/mL Ur Phencyclidine Scrn Negative (Cutoff=25) ng/mL Ur Amphetamines Screen Negative (Zuewgm=8442) ng/mL U Benzodiazepines Scrn Negative (Dbndck=423) ng/mL Urine Cocaine Screen Negative (Cutoff= 300) ng/mL U Marijuana (THC) Screen Negative (Cutoff = 50) ng/mL Ur Drug Screen Interp See Below Ethyl Alcohol (Less than 10) mg/dL
[2019-03-25] MEDS ORDERED: Acetaminophen 325 MG TABLET PO PRN (23:22)
[2019-03-25] MEDS ORDERED: Haloperidol Lactate 5 MG/ML VIAL IM PRN (23:22)
[2019-03-25] MEDS ORDERED: *HR* LORazepam 2 MG/ML VIAL IM PRN (23:22)
[2019-03-25] MEDS ORDERED: Mag Hydrox/Al Hydrox/Simeth 30 ML UDC PO PRN (23:22)
[2019-03-25] MEDS ORDERED: MOM Conc 10 ML UD.LIQ PO PRN (23:22)
[2019-03-25] MEDS ORDERED: traZODone 50 MG TABLET PO PRN (23:22)
[2019-03-25] MEDS ORDERED: *HR* LORazepam 1 MG TABLET PO PRN (23:22)
[2019-03-26] MEDS ORDERED: hydrOXYzine pamoate 25 MG CAPSULE PO PRN (11:42)
[2019-03-26] MEDS ORDERED: NON-FORMULARY MEDICATION 1 EACH EACH (Lactose-Reduced Food [Ensure Liquid] 1 BOTTLE) PO SCH (12:00)
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
[2019-03-26] MEDS ORDERED: Nicotine 2 MG GUM BC PRN (18:50)
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
[2019-03-27] MEDS: hydrOXYzine pamoate 25 MG CAPSULE PO PRN (21:12)
[2019-03-28] MEDS: hydrOXYzine pamoate 25 MG CAPSULE PO PRN ×2 (17:57→21:08)
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
--- NOTE | 2019-03-29 10:56 | Psychiatry Progress Note ---
Date of Encounter: 03/29/19 Time of Encounter: 08:20 Subjective Interval history: Patient was irritable this morning. He refuses his medications but would not say why. He otherwise had been doing better and were thinking about discharging him tomorrow but this will depend on if he can be compliant with medications. Does have a history of recurrent self injury including head banging and cutting. Review of Systems Psychiatric: Reports: depression, abnormal sleep pattern, change in appetite, anhedonia, confusion, difficulty concentrating, irritability, mood swings Results - Vital Signs Vital Signs: Temp Pulse Resp BP Pulse Ox 98.4 F 75 20 129/87 98 03/28/19 21:00 03/28/19 21:00 03/28/19 21:00 03/28/19 21:00 03/28/19 21:00 Assessment and Plan (1) Major depression with psychotic features Current visit: Yes Status: Acute Plan: Continue hospitalization, Close observation, Suicide Precautions per unit protocol, Encourage participation in unit milieu, Group Therapy, Monitor sleep, Monitor appetite Additional Plan: Continue psychiatric medications. Add naltrexone 50 mg daily at bedtime for his self-injurious behavior. Encourage group therapy. Risks, benefits, side effects, alternatives discussed w/pt: Yes (+ compliance with medications on the unit) Patient agreeable to treatment: Yes (Signs in voluntary) Consult Discharge Plan - Plan Referrals: [facility] - Care Management Program [Other] ([facility] offers specialized care management services that are available to children and adults with special health care needs. If you have a chronic health condition, like asthma or diabetes, you may benefit from our Care Management Program. We can help with a number of things, like scheduling doctor appointments and keeping all your providers informed about the care you get. To learn more and begin utilizing these services, please call . ) [facility] - Transportation Services [Other] (If you need a ride to your PCP or other medical provider, we may be able to help. [facility] will provide you with 30 one-way or 15 round trips per year to and from your PCP, WIC, pharmacy, or other participating health care or behavioral health care providers, such as vision, dental, and mental health and substance abuse providers. You may also request help to get to your Medicaid redetermination visits. Please call [facility] Transportation Services at to arrange ride. ) [facility] [Outside] (You have an appointment scheduled for an initial intake assessment. This appointment typically takes 1 1 hours and will cover your current symptoms and goals for treatment. Please complete the New Patient Intake Packet provided to you by staff and bring this with you to this appointment. Please also bring your insurance card, identification, proof of residence (utility bill or similar piece of mail), and proof of income (if applicable). If you are unable to keep this appointment, please call the office at the number above as soon as possible.) Chino José DO [Resident] - 04/26/19 11:10 am (You have an appointment scheduled with this provider on April at 11:10 AM. Please keep all of your healthcare providers informed of any changes in your medications, treatments or medical conditions. Please contact the office at the number above at least 24 hours in advance if you are unable to keep this appointment. ) Psychiatry Exam - Constitutional Vitals: Temp Pulse Resp BP Pulse Ox 98.4 F 75 20 129/87 98 03/28/19 21:00 03/28/19 21:00 03/28/19 21:00 03/28/19 21:00 03/28/19 21:00 General appearance: age & developmentally appropriate, disheveled, thin - Musculoskeletal Gait: normal Station: relaxed Strength & Tone: normal for patient - Psychiatric Patient Orientation: Yes Person, Yes Time, Yes Place, Yes Circumstance Level of alertness: Alert Behavior: suspicious Psychomotor activity: Increased Eye Contact: Minimal Contact Mood Description: Irritable Patient description of mood: Past Affect description: congruent with mood, full range Speech Volume: Soft/Quiet Speech pattern: slowed Language & Vocabulary: limited Thought Process: Linear, Goal Oriented Thought Content: No Suicidal ideation, No Homicidal ideation, No Overt delusions Perceptual Disturbances: No Auditory hallucinations, No Visual hallucinations Attention Span Ability: Unable to Sustain Attention Memory Description: Grossly Intact Patient Reliability: Questionable Historian Fund of knowledge: Yes abstraction ability, Yes below average, Yes aware of current events Intelligence Estimate: Below Average Judgment: Limited Insight: Partial
[2019-03-29] MEDS ORDERED: Naltrexone HCl 50 MG TABLET PO SCH (21:00)
[2019-03-29] MEDS: hydrOXYzine pamoate 25 MG CAPSULE PO PRN (21:16)
[2019-03-30 09:44] VITALS: BP 148/92
--- NOTE | 2019-03-30 09:58 | Discharge Summary ---
Date of Encounter: 03/30/19 Time of Encounter: 08:10 Diagnosis - Discharge Diagnosis (1) Major depression with psychotic features Status: Acute Medications - Discharge Medications Prescriptions: Escitalopram [Lexapro] 10 mg PO DAILY #15 tablet Transmission Status: Sent to [facility] Naltrexone HCl 50 mg PO HS #15 tablet Transmission Status: Sent to [facility] Oxybutynin Chloride [Ditropan XL] 10 mg PO DAILY #15 tab.er.[id number] 12/11/18 [Rx] hydrOXYzine pamoate [Vistaril] 25 mg PO TID PRN #30 capsule 12/11/18 [Rx] Lactose-Reduced Food [Ensure Liquid] 1 bottle PO DAILY #10 can 12/24/18 [Rx] Docusate [Colace] 100 mg PO BID PRN 03/25/19 [History] Naproxen 500 mg PO BID 03/25/19 [History] Quetiapine Fumarate [Seroquel] 50 mg PO BID 03/25/19 [History] Escitalopram [Lexapro] 10 mg PO DAILY #15 tablet 03/30/19 [Rx] Naltrexone HCl 50 mg PO HS #15 tablet 03/30/19 [Rx] Allergy/AdvReac Type Severity Reaction Status Date / Time No Known Allergies Allergy Verified 12/24/18 14:43 Results Procedures and tests throughout hospitalization: Completed Lab Orders Category Date Time Status Acetaminophen Stat Lab 03/25/19 15:04 Completed Basic Metabolic Panel Stat Lab 03/25/19 15:04 Completed Complete Blood Count [HEME] Stat Lab 03/25/19 15:04 Completed Drug Screen, Urine [UCHEM] Stat Lab 03/25/19 17:22 Completed Ethanol Stat Lab 03/25/19 15:04 Completed Salicylate Stat Lab 03/25/19 15:04 Completed Urinalysis reflex Microscopic [URIN] Stat Lab 03/25/19 17:22 Completed Provider Date of admission: 03/25/19 22:57 Primary care physician: PCP NONE Discharging clinician: Day Clemens Psychiatry Exam - Constitutional Vitals: Temp Pulse Resp BP Pulse Ox 98 F 122 18 148/92 99 03/30/19 09:00 03/30/19 09:00 03/30/19 09:00 03/30/19 09:00 03/30/19 09:00 General appearance: age & developmentally appropriate, disheveled, malodorous, thin - Musculoskeletal Gait: normal Station: relaxed Strength & Tone: normal for patient - Psychiatric Patient Orientation: Yes Person, Yes Time, Yes Place, Yes Circumstance Level of alertness: Alert Behavior: calm, cooperative Psychomotor activity: Normal Eye Contact: Maintains Eye Contact Mood Description: Euthymic/stable Patient description of mood: ok Affect description: congruent with mood, full range Speech Volume: Normal Speech pattern: normal rate, normal rhythm, normal tone, fluent, spontaneous Language & Vocabulary: consistent with education Thought Process: Linear, Goal Oriented Thought Content: No Suicidal ideation, No Homicidal ideation, No Overt delusions Perceptual Disturbances: No Auditory hallucinations, No Visual hallucinations Attention Span Ability: Capable of Focused Attention Memory Description: Grossly Intact Patient Reliability: Reliable Historian Fund of knowledge: Yes abstraction ability, Yes below average, Yes aware of current events Intelligence Estimate: Below Average Judgment: Good Insight: Full Hospital Course Hospital course: Mr. Sanchez is a 28 year old male who was admitted depression and suicidal ideations with some bizarre behavior and chronic self injury in the form of head banging. He was started on Lexapro for depression as well as naltrexone to he lp with chronic self injury.Patient was educated of diagnosis and the risk- benefit side effects of this alternative treatment options and was monitored for responsiveness and side effects. Mood anxiety sleep and appetite interest improved as did future orientation. Self-harm thoughts subsided, thinking cleared, psychosis resolved, and mood stabilized. Patient was able to attend both individual and group therapy sessions as well as meet with the psychiatrist daily and urged to discuss any medication or treatment issues or other concerns. The patient was educated primarily by verbal means about their diagnosis and manifestations in their life. The option for treatment including group and individual therapy programming was offered to the patient in addition to the use of medications with all their potential risks, benefits, and side effects as well as the risks of not taking medication and non-adhereance were discussed with the patient at length. The patient was given the opportunity to ask questions and was noted to participate in the treatment in the planning process. The patient felt ready and eager to be discharged from the inpatient psychiatric unit to continue on with treatment as an outpatient. The patient agreed that is they were safe for this disposition. The patient was considered to be able to participate in informed consent and decision making with respect to medical, legal, and financial issues of the time of discharge. At the time of discharge the patient adamantly denied any concerns for lethality including suicidal or homicidal thoughts ideations or plans and was future oriented toward ongoing mental health care, medical follow-up and sobriety. Time spent discussing smoking cessation with patient: 3 to 10 minutes Does patient wish to continue nicotine replacement upon disc: No - Time Spent with Patient Total time spent providing and/or coordinating discharge services: 20 Less than 30 minutes Specific discharge activities: Interval history reviewed. Available labs reviewed . Psychotherapy provided. Patient had an opportunity to ask questions and address concerns. Patient was in agreement with the treatment plan. The risks benefits and side effects of medications were discussed with the patient, including alternatives and treatment. The patient was educated on the abstaining from any alcohol or illicit substances, following up with all scheduled appointments, and taking all medications as prescribed. The patient was educated on 90 meetings in 90 days and to find a sponsor. Assessment and Plan - Patient/Caregiver Discharge Instructions Activity: resume usual activities as tolerated Diet: regular diet Additional Instructions: Continue current medications. Follow up with outpatient mental health. Enc ourage continued therapy in a group or individual setting. The patient was discharged to home. - Follow up Plan Follow up with: [facility] - Care Management Program [Other] ([facility] offers specialized care management services that are available to children and adults with special health care needs. If you have a chronic health condition, like asthma or diabetes, you may benefit from our Care Management Program. We can help with a number of things, like scheduling doctor appointments and keeping all your providers informed about the care you get. To learn more and begin utilizing these services, please call . ) [facility] - Transportation Services [Other] (If you need a ride to your PCP or other medical provider, we may be able to help. [facility] will provide you with 30 one-way or 15 round trips per year to and from your PCP, WIC, pharmacy, or other participating health care or behavioral health care providers, such as vision, dental, and mental health and substance abuse providers. You may also request help to get to your Medicaid redetermination visits. Please call [facility] Transportation Services at to arrange ride. ) [facility] [Outside] ([facility] Staff will call you with your appointment information for an initial intake assessment. This appointment typically takes 1 1 hours and will cover your current symptoms and goals for treatment. Please complete the New Patient Intake Packet provided to you by [facility] staff and bring this with you to this appointment. Please also bring your insurance card, identification, proof of residence (utility bill or similar piece of mail), and proof of income (if applicable). If you are unable to keep this appointment, please call the office at the number above as soon as possible.) Chino José DO [Resident] - 04/26/19 11:10 am (You have an appointment scheduled with this provider on , April 26, 2019 at 11:10 AM. Please keep all of your healthcare providers informed of any changes in your medications, treatments or medical conditions. Please contact the office at the number above at least 24 hours in advance if you are unable to keep this appointment. ) Functional capacity at discharge: independent ambulation Overall status at discharge: Stable Disposition: Home, Self-Care Quality - Multiple Antipsychotics Patient discharged on 2 or more antipsychotic medications: No Procedures - Procedures Procedures: Medication Management, Crisis Stabilization, Supportive Therapy, Group Therapy, Psychoeducational Therapy
== END 2019-03-30 17:27 | disposition home or self-care (01) | DRG 751 ==
LOC: EMEROOARM 14:49 → 1ANU 22:57 → SUATTDRO 22:57 → 1ANU 23:15
PROVIDERS: ADMIT Psychiatry & Neurology Psychiatry; ATTEND Psychiatry & Neurology Psychiatry

== ENCOUNTER 2019-10-08 13:14 | Inpatient (IN) ==
[2019-10-08 13:49] LABS: Basophils % 0.6 %; Eosinophils # 0.1 K/mcL (0.0-0.6); Eosinophils % 0.9 %; Hematocrit 38.3 % (37.5-50.1); Hemoglobin 12.9 g/dL (12.9-16.9); Immature Granulocytes % 0.3 % (0-4); Lymphocytes # 2.3 K/mcL (0.6-4.6); Lymphocytes % 34.6 %; Mean Corpuscular HGB Conc 33.7 g/dL (31.6-35.5); Mean Corpuscular Hemoglobin 31.9 pg (28.0-33.3); Mean Corpuscular Volume 94.6 fL (83.0-100.0); Mean Platelet Volume 9.6 fL (9.4-12.4); Monocytes # 0.4 K/mcL (0.0-1.3); Monocytes % 5.8 %; Neutrophils # 3.8 K/mcL (1.6-8.9); Platelet Count 239 K/mcL (140-400); Red Blood Count 4.05 M/mcL (4.19-5.50); Red Cell Distribution Width 14.3 % (11.5-14.5); Segmented Neutrophils % 57.8 %; White Blood Count 6.6 K/mcL (4.3-11.1)
[2019-10-08 13:52] LABS: Bilirubin,Urine Negative (Negative); Blood,Urine Negative (Negative); Clarity,Urine Clear (Clear); Color,Urine Yellow (Yellow); Glucose,Urine (UA) Normal (Normal); Ketones,Urine Negative (Negative); Leukocyte Esterase,Urine Negative (Negative); Nitrite,Urine Negative (Negative); Protein,Urine Negative (Neg-Trace); Specific Gravity,Urine 1.013 (1.010-1.025); Urobilinogen,Urine Normal (Normal)
[2019-10-08 14:06] LABS: Amphetamine Screen,Urine Negative ng/mL (Cutoff=1000); Barbiturate Screen,Urine Negative ng/mL (Cutoff=200); Benzodiazepines Screen,Urine Negative ng/mL (Cutoff=200); Cannabinoid Screen,Urine Positive ng/mL (Cutoff = 50); Cocaine Screen,Urine Negative ng/mL (Cutoff= 300); Opiate Screen,Urine Negative ng/mL (Cutoff=300); Phencyclidine Screen,Urine Negative ng/mL (Cutoff=25)
[2019-10-08 14:11] LABS: Acetaminophen < 10 mcg/mL (10-20); Alanine Aminotransferase 25 Units/L (7-52); Albumin 4.7 g/dL (3.5-5.7); Albumin/Globulin Ratio 1.8 (1.1-2.2); Alkaline Phosphatase 84 Units/L (34-104); Aspartate Amino Transferase 23 Units/L (13-39); BUN/Creatinine Ratio 14 (6-26); Bilirubin,Direct 0.1 mg/dL (0.0-0.2); Bilirubin,Indirect 0.2 mg/dL (0.0-1.0); Bilirubin,Total 0.3 mg/dL (0.3-1.0); Blood Urea Nitrogen 10 mg/dL (6-20); Calcium 10.1 mg/dL (8.6-10.3); Carbon Dioxide 25 mEq/L (23-29); Chloride 104 mEq/L (98-107); Ethanol < 10 mg/dL (Less than 10); Globulin 2.6 g/dL (2.4-3.5); Glucose 92 mg/dL (70-105); Osmolality,Calculated 287 (280-300); Potassium 3.6 mEq/L (3.5-5.1); Salicylate < 2.5 mg/dL (15.0-30.0); Sodium 139 mEq/L (136-145); Total Protein 7.3 g/dL (6.4-8.9); eGFR For African Americans > 60 (> 60); eGFR For Non-African Americans > 60 (> 60)
[2019-10-08 14:24] LABS: Thyroid Stimulating Hormone 2.007 mcIU/mL (0.340-5.600)
[2019-10-08] MEDS ORDERED: *HR* LORazepam 2 MG/ML VIAL IM PRN (16:04)
[2019-10-08] MEDS ORDERED: MOM Conc 10 ML UD.LIQ PO PRN (16:04)
[2019-10-08] MEDS ORDERED: Haloperidol Lactate 5 MG/ML VIAL IM PRN (16:04)
[2019-10-08] MEDS ORDERED: traZODone 50 MG TABLET PO PRN (16:04)
[2019-10-08] MEDS ORDERED: haloperidoL 5 MG TABLET PO PRN (16:04)
[2019-10-08] MEDS ORDERED: Mag Hydrox/Al Hydrox/Simeth 30 ML UDC PO PRN (16:04)
[2019-10-08] MEDS ORDERED: Ibuprofen 400 MG TABLET PO PRN (16:04)
[2019-10-08] MEDS ORDERED: *HR* LORazepam 1 MG TABLET PO PRN (16:04)
[2019-10-08] MEDS: Nicotine 14 MG PATCH.TD24 TD SCH (18:03)
[2019-10-08] MEDS: Acetaminophen 325 MG TABLET PO PRN (18:04)
[2019-10-08] MEDS: QUEtiapine Fumarate 100 MG TABLET PO SCH (20:50)
[2019-10-09] MEDS: QUEtiapine Fumarate 100 MG TABLET PO SCH ×2 (10:06→20:15)
[2019-10-09] MEDS: Nicotine 14 MG PATCH.TD24 TD SCH (10:06)
[2019-10-09] MEDS: Cholecalciferol (D-3) 1,000 UNIT (25MCG) TABLET PO SCH (10:46)
[2019-10-09] MEDS: Acetaminophen 325 MG TABLET PO PRN (20:14)
[2019-10-09] MEDS: QUEtiapine Fumarate 25 MG TABLET PO SCH (20:15)
[2019-10-09] MEDS: Naltrexone HCl 50 MG TABLET PO SCH (20:15)
[2019-10-10] MEDS: Cholecalciferol (D-3) 1,000 UNIT (25MCG) TABLET PO SCH (08:18)
[2019-10-10] MEDS: Nicotine 14 MG PATCH.TD24 TD SCH (08:18)
[2019-10-10] MEDS: QUEtiapine Fumarate 100 MG TABLET PO SCH ×2 (08:18→20:50)
[2019-10-10] MEDS ORDERED: hydrOXYzine pamoate 25 MG CAPSULE PO PRN ×2 (13:04→18:09)
[2019-10-10] MEDS: Naltrexone HCl 50 MG TABLET PO SCH (20:49)
[2019-10-10] MEDS: QUEtiapine Fumarate 25 MG TABLET PO SCH (20:49)
[2019-10-10] MEDS: Acetaminophen 325 MG TABLET PO PRN (20:49)
[2019-10-11] MEDS: Nicotine 14 MG PATCH.TD24 TD SCH (09:45)
[2019-10-11] MEDS: QUEtiapine Fumarate 100 MG TABLET PO SCH (09:45)
[2019-10-11] MEDS: Cholecalciferol (D-3) 1,000 UNIT (25MCG) TABLET PO SCH (09:46)
[2019-10-11 09:53] VITALS: BP 138/81
== END 2019-10-11 13:05 | disposition home or self-care (01) | DRG 751 ==
LOC: EMEROOARM 13:14 → 1ANU 15:48
PROVIDERS: ADMIT Psychiatry & Neurology Psychiatry; ATTEND Psychiatry & Neurology Psychiatry

== ENCOUNTER 2019-10-18 18:16 | Inpatient (IN) ==
[2019-10-18] MEDS ORDERED: Tdap (Boostrix) Vaccine 0.5 ML SYRINGE IM ONE (18:23)
[2019-10-18 19:07] LABS: Basophils # 0.1 K/mcL (0.0-0.2); Basophils % 0.6 %; Eosinophils # 0.1 K/mcL (0.0-0.6); Eosinophils % 0.7 %; Hematocrit 36.9 % (37.5-50.1); Hemoglobin 12.7 g/dL (12.9-16.9); Immature Granulocytes % 0.2 % (0-4); Lymphocytes # 2.7 K/mcL (0.6-4.6); Lymphocytes % 32.9 %; Mean Corpuscular HGB Conc 34.4 g/dL (31.6-35.5); Mean Corpuscular Hemoglobin 31.9 pg (28.0-33.3); Mean Corpuscular Volume 92.7 fL (83.0-100.0); Mean Platelet Volume 9.6 fL (9.4-12.4); Monocytes # 0.5 K/mcL (0.0-1.3); Monocytes % 6.6 %; Neutrophils # 4.8 K/mcL (1.6-8.9); Platelet Count 235 K/mcL (140-400); Red Blood Count 3.98 M/mcL (4.19-5.50); Red Cell Distribution Width 13.7 % (11.5-14.5); White Blood Count 8.2 K/mcL (4.3-11.1)
[2019-10-18 19:09] LABS: Bilirubin,Urine Negative (Negative); Blood,Urine Negative (Negative); Clarity,Urine Turbid (Clear); Color,Urine Yellow (Yellow); Glucose,Urine (UA) Normal (Normal); Ketones,Urine Negative (Negative); Leukocyte Esterase,Urine Negative (Negative); Nitrite,Urine Negative (Negative); PH,Urine 7.5 pH Units (5.0-8.0); Protein,Urine Negative (Neg-Trace); Urobilinogen,Urine Normal (Normal)
[2019-10-18 19:11] LABS: Bacteria,Urine None Seen per hpf (None-Few); Hyaline Casts,Urine None Seen per lpf (None-Few); RBC,Urine 0-3 per hpf (0-3); Squamous Epithelial Cell,Urine Moderate per lpf (None-Few); WBC,Urine 0-3 per hpf (0-3)
[2019-10-18 19:15] LABS: Amphetamine Screen,Urine Negative ng/mL (Cutoff=1000); Barbiturate Screen,Urine Negative ng/mL (Cutoff=200); Benzodiazepines Screen,Urine Negative ng/mL (Cutoff=200); Cannabinoid Screen,Urine Positive ng/mL (Cutoff = 50); Cocaine Screen,Urine Negative ng/mL (Cutoff= 300); Opiate Screen,Urine Negative ng/mL (Cutoff=300); Phencyclidine Screen,Urine Negative ng/mL (Cutoff=25)
[2019-10-18 19:34] LABS: Acetaminophen < 10 mcg/mL (10-20); BUN/Creatinine Ratio 26 (6-26); Blood Urea Nitrogen 17 mg/dL (6-20); Calcium 10.1 mg/dL (8.6-10.3); Carbon Dioxide 22 mEq/L (23-29); Chloride 106 mEq/L (98-107); Ethanol < 10 mg/dL (Less than 10); Glucose 84 mg/dL (70-105); Osmolality,Calculated 289 (280-300); Potassium 3.1 mEq/L (3.5-5.1); Salicylate < 2.5 mg/dL (15.0-30.0); Sodium 139 mEq/L (136-145); eGFR For African Americans > 60 (> 60); eGFR For Non-African Americans > 60 (> 60)
[2019-10-18] MEDS ORDERED: Potassium Chloride Elixir 20 MEQ/15 ML UDC PO ONE (19:37)
[2019-10-18] MEDS ORDERED: Ibuprofen 400 MG TABLET PO PRN (21:27)
[2019-10-18] MEDS ORDERED: haloperidoL 5 MG TABLET PO PRN (21:27)
[2019-10-18] MEDS ORDERED: *HR* LORazepam 1 MG TABLET PO PRN (21:27)
[2019-10-18] MEDS ORDERED: Haloperidol Lactate 5 MG/ML VIAL IM PRN (21:27)
[2019-10-18] MEDS ORDERED: Mag Hydrox/Al Hydrox/Simeth 30 ML UDC PO PRN (21:27)
[2019-10-18] MEDS ORDERED: MOM Conc 10 ML UD.LIQ PO PRN (21:27)
[2019-10-18] MEDS ORDERED: *HR* LORazepam 2 MG/ML VIAL IM PRN (21:27)
[2019-10-18] MEDS ORDERED: QUEtiapine Fumarate 25 MG TABLET PO PRN (21:27)
[2019-10-18] MEDS: hydrOXYzine pamoate 25 MG CAPSULE PO PRN (22:17)
[2019-10-18] MEDS: Amoxicillin 500 MG CAPSULE PO SCH (22:58)
[2019-10-19] MEDS: hydrOXYzine pamoate 25 MG CAPSULE PO PRN ×2 (07:35→20:37)
[2019-10-19] MEDS: Amoxicillin 500 MG CAPSULE PO SCH ×3 (08:43→20:37)
[2019-10-19] MEDS ORDERED: chlorproMAZINE 25 MG TABLET PO PRN (10:36)
[2019-10-19] MEDS ORDERED: QUEtiapine Fumarate 100 MG TABLET PO SCH (21:00)
[2019-10-20] MEDS: Amoxicillin 500 MG CAPSULE PO SCH (09:26)
[2019-10-20 09:27] VITALS: BP 119/76
[2019-10-20] MEDS ORDERED: FLU Vac QV 19-20 (6Month+)/PF 0.5 ML SYRINGE IM ONE (10:48)
== END 2019-10-20 11:26 | disposition home or self-care (01) | DRG 751 ==
LOC: EMEROOARM 18:16 → 1ANU 21:20
PROVIDERS: ADMIT Psychiatry & Neurology Psychiatry; ATTEND Psychiatry & Neurology Psychiatry

== ENCOUNTER 2020-07-08 13:19 | Inpatient (IN) ==
[2020-07-08 14:02] LABS: Estimated Average Glucose 126 mg/dl
[2020-07-08 14:11] LABS: Amphetamine Screen,Urine Negative ng/mL (Cutoff=1000); Barbiturate Screen,Urine Negative ng/mL (Cutoff=200); Benzodiazepines Screen,Urine Negative ng/mL (Cutoff=200); Cannabinoid Screen,Urine Positive ng/mL (Cutoff = 50); Cocaine Screen,Urine Negative ng/mL (Cutoff= 300); Opiate Screen,Urine Negative ng/mL (Cutoff=300); Phencyclidine Screen,Urine Negative ng/mL (Cutoff=25)
[2020-07-08 14:18] LABS: Acetaminophen < 10 mcg/mL (10-20); BUN/Creatinine Ratio 14 (6-26); Blood Urea Nitrogen 11 mg/dL (6-20); Calcium 10.3 mg/dL (8.6-10.3); Carbon Dioxide 24 mEq/L (23-29); Chloride 101 mEq/L (98-107); Chol/HDL Ratio 3.2 (0-4.9); Cholesterol 175 mg/dL (< 200); Ethanol < 10 mg/dL (Less than 10); Glucose 111 mg/dL (70-105); HDL Cholesterol 55 mg/dL (40-59); LDL Cholesterol,Calculated 105 mg/dL (< 100); Osmolality,Calculated 284 (280-300); Salicylate < 2.5 mg/dL (15.0-30.0); Sodium 137 mEq/L (136-145); Triglycerides 73 mg/dL (< 150); eGFR For African Americans > 60 (> 60); eGFR For Non-African Americans > 60 (> 60)
[2020-07-08 14:25] LABS: Bilirubin,Urine Negative (Negative); Blood,Urine Negative (Negative); Clarity,Urine Clear (Clear); Color,Urine Light-Yellow (Yellow); Glucose,Urine (UA) Normal (Normal); Ketones,Urine Negative (Negative); Leukocyte Esterase,Urine Negative (Negative); Nitrite,Urine Negative (Negative); Protein,Urine Negative (Neg-Trace); Specific Gravity,Urine 1.016 (1.010-1.025); Urobilinogen,Urine Normal (Normal)
[2020-07-08 14:37] LABS: Basophils % 0.5 %; Eosinophils # 0.1 K/mcL (0.0-0.6); Eosinophils % 0.9 %; Hematocrit 40.7 % (37.5-50.1); Immature Granulocytes % 0.2 % (0-4); Lymphocytes # 2.1 K/mcL (0.6-4.6); Lymphocytes % 26.1 %; Mean Corpuscular HGB Conc 34.4 g/dL (31.6-35.5); Mean Corpuscular Hemoglobin 31.3 pg (28.0-33.3); Mean Corpuscular Volume 91.1 fL (83.0-100.0); Mean Platelet Volume 9.7 fL (9.4-12.4); Monocytes # 0.4 K/mcL (0.0-1.3); Monocytes % 4.7 %; Neutrophils # 5.4 K/mcL (1.6-8.9); Platelet Count 183 K/mcL (140-400); Red Blood Count 4.47 M/mcL (4.19-5.50); Red Cell Distribution Width 13.2 % (11.5-14.5); Segmented Neutrophils % 67.6 %
[2020-07-08] MEDS ORDERED: Gadolinium Contrast Agent (WT Based) IV PRN (17:30)
[2020-07-08] MEDS ORDERED: Haloperidol Lactate 5 MG/ML VIAL IM PRN (20:28)
[2020-07-08] MEDS ORDERED: haloperidoL 5 MG TABLET PO PRN (20:28)
[2020-07-08] MEDS ORDERED: MOM Conc 10 ML UD.LIQ PO PRN (20:28)
[2020-07-08] MEDS ORDERED: Mag Hydrox/Al Hydrox/Simeth 30 ML UDC PO PRN (20:28)
[2020-07-08] MEDS ORDERED: *HR* LORazepam 1 MG TABLET PO PRN (20:28)
[2020-07-08] MEDS ORDERED: *HR* LORazepam 2 MG/ML VIAL IM PRN (20:28)
[2020-07-08] MEDS: traZODone 50 MG TABLET PO PRN ×2 (21:19→22:27)
[2020-07-08] MEDS: hydrOXYzine pamoate 25 MG CAPSULE PO PRN (21:19)
[2020-07-08] MEDS: Doxycycline 100 MG CAPSULE PO SCH (21:19)
[2020-07-08] MEDS: Acetaminophen 325 MG TABLET PO PRN (21:43)
[2020-07-09] MEDS ORDERED: QUEtiapine Fumarate 100 MG TABLET PO STA (01:54)
[2020-07-09] MEDS: hydrOXYzine pamoate 25 MG CAPSULE PO PRN ×2 (02:01→20:57)
[2020-07-09] MEDS: Doxycycline 100 MG CAPSULE PO SCH ×2 (07:48→20:57)
[2020-07-09] MEDS: Nicotine 7 MG PATCH.TD24 TD SCH (08:09)
[2020-07-09] MEDS ORDERED: QUEtiapine Fumarate 100 MG TABLET PO SCH (09:00)
[2020-07-09] MEDS: QUEtiapine Fumarate 100 MG TABLET PO SCH (20:57)
[2020-07-09] MEDS: traZODone 50 MG TABLET PO PRN (20:57)
[2020-07-10] MEDS: Acetaminophen 325 MG TABLET PO PRN (05:26)
[2020-07-10] MEDS: hydrOXYzine pamoate 25 MG CAPSULE PO PRN (05:28)
[2020-07-10] MEDS: QUEtiapine Fumarate 100 MG TABLET PO SCH (09:02)
[2020-07-10] MEDS: Doxycycline 100 MG CAPSULE PO SCH (09:02)
[2020-07-10] MEDS: Nicotine 7 MG PATCH.TD24 TD SCH (09:14)
[2020-07-10 09:32] VITALS: BP 126/75
[2020-07-10] MEDS: Nicotine 2 MG GUM BC PRN ×2 (09:47→14:00)
== END 2020-07-10 14:30 | disposition home or self-care (01) | DRG 751 ==
LOC: EMEROOARM 13:19 → 1ANU 19:55
PROVIDERS: ADMIT Psychiatry & Neurology Psychiatry; ATTEND Psychiatry & Neurology Psychiatry

== ENCOUNTER 2020-08-12 04:28 | Inpatient (IN) ==
[2020-08-12 05:11] LABS: Basophils % 0.6 %; Eosinophils # 0.2 K/mcL (0.0-0.6); Eosinophils % 2.6 %; Hematocrit 36.9 % (37.5-50.1); Hemoglobin 12.2 g/dL (12.9-16.9); Immature Granulocytes % 0.3 % (0-4); Lymphocytes # 2.5 K/mcL (0.6-4.6); Mean Corpuscular HGB Conc 33.1 g/dL (31.6-35.5); Mean Corpuscular Hemoglobin 31.7 pg (28.0-33.3); Mean Corpuscular Volume 95.8 fL (83.0-100.0); Mean Platelet Volume 9.4 fL (9.4-12.4); Monocytes # 0.6 K/mcL (0.0-1.3); Monocytes % 8.7 %; Neutrophils # 3.2 K/mcL (1.6-8.9); Platelet Count 228 K/mcL (140-400); Red Blood Count 3.85 M/mcL (4.19-5.50); Red Cell Distribution Width 14.5 % (11.5-14.5); Segmented Neutrophils % 49.8 %; White Blood Count 6.5 K/mcL (4.3-11.1)
[2020-08-12 05:29] LABS: Acetaminophen < 10 mcg/mL (10-20); Alanine Aminotransferase 23 Units/L (7-52); Albumin 4.4 g/dL (3.5-5.7); Albumin/Globulin Ratio 1.8 (1.1-2.2); Alkaline Phosphatase 74 Units/L (34-104); Aspartate Amino Transferase 20 Units/L (13-39); BUN/Creatinine Ratio 18 (6-26); Bilirubin,Indirect 0.2 mg/dL (0.0-1.0); Bilirubin,Total 0.2 mg/dL (0.3-1.0); Blood Urea Nitrogen 13 mg/dL (6-20); Calcium 9.3 mg/dL (8.6-10.3); Carbon Dioxide 26 mEq/L (23-29); Chloride 107 mEq/L (98-107); Ethanol < 10 mg/dL (Less than 10); Globulin 2.5 g/dL (2.4-3.5); Glucose 83 mg/dL (70-105); Osmolality,Calculated 289 (280-300); Potassium 3.7 mEq/L (3.5-5.1); Salicylate < 2.5 mg/dL (15.0-30.0); Sodium 140 mEq/L (136-145); Total Protein 6.9 g/dL (6.4-8.9); eGFR For African Americans > 60 (> 60); eGFR For Non-African Americans > 60 (> 60)
[2020-08-12 05:32] LABS: Amphetamine Screen,Urine Negative ng/mL (Cutoff=1000); Barbiturate Screen,Urine Negative ng/mL (Cutoff=200); Benzodiazepines Screen,Urine Negative ng/mL (Cutoff=200); Cannabinoid Screen,Urine Positive ng/mL (Cutoff = 50); Cocaine Screen,Urine Negative ng/mL (Cutoff= 300); Opiate Screen,Urine Negative ng/mL (Cutoff=300); Phencyclidine Screen,Urine Negative ng/mL (Cutoff=25)
[2020-08-12] MEDS ORDERED: *HR* LORazepam 1 MG TABLET PO ONE (07:03)
[2020-08-12] MEDS ORDERED: *HR* LORazepam 2 MG/ML VIAL IM PRN (12:40)
[2020-08-12] MEDS ORDERED: haloperidoL 5 MG TABLET PO PRN (12:40)
[2020-08-12] MEDS ORDERED: Haloperidol Lactate 5 MG/ML VIAL IM PRN (12:40)
[2020-08-12] MEDS ORDERED: MOM Conc 10 ML UD.LIQ PO PRN (12:40)
[2020-08-12] MEDS ORDERED: *HR* LORazepam 1 MG TABLET PO PRN (12:40)
[2020-08-12] MEDS ORDERED: Mag Hydrox/Al Hydrox/Simeth 30 ML UDC PO PRN (12:40)
[2020-08-12] MEDS ORDERED: Nicotine 21 MG PATCH.TD24 TD SCH (12:45)
[2020-08-12] MEDS: Divalproex (12 HR) 500 MG TABLET PO SCH ×2 (14:38→20:18)
[2020-08-12] MEDS: Nicotine 2 MG GUM BC PRN (15:35)
[2020-08-12] MEDS: hydrOXYzine pamoate 25 MG CAPSULE PO PRN ×2 (15:35→20:18)
[2020-08-12] MEDS: Acetaminophen 325 MG TABLET PO PRN (15:51)
[2020-08-12] MEDS: risperiDONE 1 MG TABLET PO SCH (20:18)
[2020-08-12] MEDS: traZODone 50 MG TABLET PO PRN (20:18)
[2020-08-13] MEDS: risperiDONE 1 MG TABLET PO SCH ×2 (08:38→20:52)
[2020-08-13] MEDS: Divalproex (12 HR) 500 MG TABLET PO SCH ×2 (08:38→20:52)
[2020-08-13] MEDS: Nicotine 2 MG GUM BC PRN ×2 (10:05→14:58)
[2020-08-13] MEDS: hydrOXYzine pamoate 25 MG CAPSULE PO PRN (14:39)
[2020-08-13] MEDS: traZODone 50 MG TABLET PO PRN (20:52)
[2020-08-14] MEDS: hydrOXYzine pamoate 25 MG CAPSULE PO PRN (03:16)
[2020-08-14] MEDS: Divalproex (12 HR) 500 MG TABLET PO SCH (08:47)
[2020-08-14] MEDS: risperiDONE 1 MG TABLET PO SCH (08:47)
[2020-08-14] MEDS: Acetaminophen 325 MG TABLET PO PRN (08:48)
[2020-08-14 09:01] VITALS: BP 137/86
[2020-08-14] MEDS: Nicotine 2 MG GUM BC PRN (10:41)
== END 2020-08-14 13:00 | disposition home or self-care (01) | DRG 753 ==
LOC: EMEROOARM 04:28 → 1ANU 12:34
PROVIDERS: ADMIT Psychiatry & Neurology Psychiatry; ATTEND Psychiatry & Neurology Psychiatry